=== PATIENT | female | born 1995 | race Caucasian/White ===

== ENCOUNTER 2020-10-31 05:52 | Emergency (ER) | payer OTHER ==
[~2020-10-31] VITALS: Ht 172.7 cm; Wt 99.3 kg
[2020-10-31] MEDS ORDERED: ZOFRAN ODT4 MG PO (08:20)
[2020-10-31 08:42] VITALS: BP 139/84
== END 2020-10-31 08:43 | disposition home or self-care (01) ==
LOC: ER 05:52
DX: S06.0X9A Concussion with loss of consciousness of unspecified duration, initial encounter (principal); Z88.1 Allergy status to other antibiotic agents; Z90.710 Acquired absence of both cervix and uterus; W06.XXXA Fall from bed, initial encounter; Y93.89 Activity, other specified; Y92.89 Other specified places as the place of occurrence of the external cause; Y99.8 Other external cause status